=== PATIENT | male | born 1980 | race Caucasian/White ===

== ENCOUNTER 2024-09-09 10:28 | Emergency (ER) | payer BC, MEDICARE ==
[~2024-09-09] VITALS: Ht 180.3 cm; Wt 75.0 kg
[2024-09-09 10:43] VITALS: O2SAT 98
[2024-09-09 11:26] VITALS: BP 144/99; PULSE 89; RESP 16; TEMP 98.4; O2SAT 98
== END 2024-09-09 17:30 | disposition left against medical advice (07) ==
LOC: ER 10:28
DX: M54.50 Low back pain, unspecified (principal); W10.9XXA Fall (on) (from) unspecified stairs and steps, initial encounter; Y93.89 Activity, other specified; Y92.89 Other specified places as the place of occurrence of the external cause; Y99.8 Other external cause status
CPT/HCPCS: 72100; 99283

== ENCOUNTER 2025-04-02 16:44 | Emergency (ER) | payer BC, OTHER ==
[~2025-04-02] VITALS: Ht 180.3 cm; Wt 70.0 kg
[2025-04-02 16:51] VITALS: O2SAT 97
[2025-04-02 17:47] VITALS: BP 129/73; PULSE 84; RESP 14; TEMP 36.9; O2SAT 5
== END 2025-04-02 19:04 | disposition home or self-care (01) ==
LOC: ER 16:44
DX: M54.50 Low back pain, unspecified (principal); F41.9 Anxiety disorder, unspecified; F32.A Depression, unspecified; Z98.890 Other specified postprocedural states; Z79.899 Other long term (current) drug therapy; E78.00 Pure hypercholesterolemia, unspecified
CPT/HCPCS: 99282